=== PATIENT | female | born 1970 ===

== ENCOUNTER 2016-09-16 00:20 | Emergency (ER) | payer SELFPAY ==
[2016-09-16] MEDS ORDERED: cefTRIAXone SODIUM 1 GM VIAL ONE (00:46)
[2016-09-16] MEDS ORDERED: Lidocaine 1% 5ml(IM or SUTURE)(PAIN CLINIC) ONE (00:46)
--- NOTE | 2016-09-16 00:48 | ED Physician Documentation ---
Abscess - HISTORIAN Historian: patient - HPI Stated Complaint: Redness/Swelling to Left Calf Chief Complaint: Abscess Onset: days ago (5) Timing: still present Location: LLE Identified Cause?: No Where: home Further Comments: yes (46 year old female patient presents with complaint of spider bite on left lower leg, states she noticed it 5 days ago, reports "mashing it and drainage is coming out".) - ROS CONST: none CVS/RESP: none EYES/ENT: none GI/: none MS/SKIN/LYMPH: calf pain (left) NEURO/PSYCH: none - PAST HX Past History: hypertension, other (PTSD, anxiety, Hep C) Allergies/Adverse Reactions: Allergies Allergy/AdvReac Type Severity Reaction Status Date / Time codeine Allergy Verified 09/16/16 00:46 Home Medications: Ambulatory Orders Medication Instructions Recorded Cephalexin [Keflex] 500 mg PO QID #40 capsule 09/16/16 High Blood Pressure 09/16/16 LORazepam [Ativan] 1 mg PO 09/16/16 Lamotrigine [Lamictal] 150 mg PO 09/16/16 Ranitidine HCl 150 mg PO 09/16/16 - SOCIAL HX Smoking History: cigarettes - FAMILY HX Family History: denies: none - VITAL SIGNS Vital Signs: Vital Signs Temp Pulse Resp BP Pulse Ox 98 F 108 H 20 174/98 98 09/16/16 00:20 09/16/16 00:20 09/16/16 00:20 09/16/16 00:20 09/16/16 00:20 - REVIEWED ASSESSMENTS Nursing Assessment Reviewed: Yes Vitals Reviewed: Yes Progress - Progress Progress: Patient requesting note to miss court tomorrow. Explained I could not give her a note to excuse her from court tomorrow. Patient reports being allergic to PCN and Sulfa, states she can take cephalosporins. Rocephin IM given in Er, keflex Rx to pharmacy. ED Results Lab/Radiology - Orders Orders: ED Orders Category Date Time Status Lidocaine 1% 5ml(IM or SUTURE) [Xylocaine] Med 09/16/16 00:46 Discontinued 50 mg .ROUTE .STK-MED ONE Lidocaine 1% 5ml(IM or SUTURE) [Xylocaine] Med 09/16/16 00:49 Discontinued 50 mg IJ NOW ONE cefTRIAXone SODIUM [Rocephin] Med 09/16/16 00:46 Discontinued 1 gm .ROUTE .STK-MED ONE cefTRIAXone SODIUM [Rocephin] Med 09/16/16 00:49 Discontinued 1 gm IM NOW ONE Abscess Physical Exam - EXAM General Appearance: anxious Skin: warm,dry, abscess (left posterior leg; 5 cm area of erythema, scant purulent drainage. ) Location: extremities (LLE - calf area) Character: erythematous Symptoms: warmth, tenderness Extremities: nml ROM EENT: eyes nml inspection Neuro/Psych: oriented x3, CN's nml as tested, motor nml, sensation nml, mood/ affect nml Discharge Clincal Impression: Abscess of left leg Prescriptions: Cephalexin [Keflex] 500 mg PO QID #40 capsule Additional Instructions: Clean the laceration twice a day with hibiclens and rinse with water clean away any scabbed area Apply thin coat of antibiotic ointment after cleaning the wound. Cover with non-adherent bandage if able. If you have pain, take simple pain relief medication such as Tylenol or ibuprofen. If bandages or dressings get wet, they will need to be changed. You may keep your appointment at court tomorrow. 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 Home Medications: Ambulatory Orders Cephalexin [Keflex] 500 mg PO QID #40 capsule 09/16/16 High Blood Pressure 09/16/16 LORazepam [Ativan] 1 mg PO 09/16/16 Lamotrigine [Lamictal] 150 mg PO 09/16/16 Ranitidine HCl 150 mg PO 09/16/16 Condition: Stable Disposition: 01 HOME, SELF-CARE Decision to Admit: NO Decision Time: 00:46
[2016-09-16] MEDS ORDERED: Lidocaine 1% 5ml(IM or SUTURE)(PAIN CLINIC) IJ ONE (00:49)
[2016-09-16] MEDS ORDERED: cefTRIAXone SODIUM 1 GM VIAL IM ONE (00:49)
[2016-09-16 01:00] VITALS: BP 139/90
== END 2016-09-16 00:59 | disposition home or self-care (01) ==
LOC: ED 00:20
DX: L02.416 Cutaneous abscess of left lower limb (principal)
CPT/HCPCS: J0696 ×2; 96372; 99283